=== PATIENT | male | born 1995 | race African-American/Black ===

== ENCOUNTER 2016-12-18 14:54 | Emergency (ER) | payer SELFPAY ==
[~2016-12-18 14:54] MED LIST: DICY1TAB26 PO; FAMO20 PO; ZOFR4TAB3 PO
[2016-12-18 14:58] VITALS: BP 118/60; PULSE 91; RESP 12; TEMP 99; O2SAT 99
--- NOTE | 2016-12-18 22:34 | PD ---
Physical Exam Date Seen by Provider: Dec 18, 2016 Narrative Patient presented to the emergency department for evaluation of Posterior left shoulder pain. Patient states the pain has been ongoing since Thursday, he denies any injury or trauma. Pt went to [facility] on Thursday and was prescribed Naproxen and Tizanidine. Pt reports that he performs repetitive movements at work. He denies any weakness or numbness. He states the pain as a 6 out of 10 is throbbing. Data Data Last Documented VS Vital Signs Date Time Temp Pulse Resp B/P (MAP) Pulse Ox O2 Delivery O2 Flow Rate FiO2 12/18/16 16:46 12/18/16 14:58 99.0 91 12 99 MDM Medical Record Reviewed: Yes Supervised Visit with OUSMANE: No Narrative Course Patient is a 21-year-old male presenting to emergency department for evaluation of left shoulder pain. There is no receding injury or trauma. Patient appears well, his vital signs are stable. Patient is awaiting bed placement. Diagnosis Primary Impression: Left against medical advice Disposition: 07 AGAINST MEDICAL ADVICE Chiquis Messina Dec 18, 2016 22:34
== END 2016-12-18 17:15 | disposition left against medical advice (07) ==
LOC: NED 14:54
DX: M25.561 Pain in right knee (principal); Z53.21 Procedure and treatment not carried out due to patient leaving prior to being seen by health care provider
CPT/HCPCS: 99281